=== PATIENT | female | born 1970 | race Caucasian/White ===

== ENCOUNTER → 2019-07-28 | Outpatient (CLI) | payer BC ==
[~2019-07-28] MED LIST: CETI10CH PO; GABA-282 PO; MOBI4TAB PO; PANT40TA29 PO; PRIM50TA6 PO
[2019-07-28 18:11] LABS: BASO # 0.1 10^3/uL (0.0-0.2); BASO % 0.9 % (0.0-1.0); EOS # 0.4 10^3/uL (0.0-0.5); EOS % 3.4 % (0.0-3.0); HEMOGLOBIN 15.4 g/dl (12.0-15.5); LYMPH # 3.8 10^3/uL (1.5-5.0); LYMPH % 30.1 % (24.0-44.0); MEAN CORPUSCULAR HEMOGLOBIN 30.3 pg (27.0-33.0); MEAN CORPUSCULAR HGB CONC 33.5 g/dl (32.0-36.5); MEAN CORPUSCULAR VOLUME 90.4 fl (80.0-96.0); MONO # 0.8 10^3/uL (0.0-0.8); MONO % 6.4 % (0.0-5.0); NEUTROPHILS # 7.4 10^3/uL (1.5-8.5); NEUTROPHILS % 58.6 % (36.0-66.0); PLATELET COUNT, AUTOMATED 353 10^3/uL (150-450); RED BLOOD COUNT 5.09 10^6/uL (4.00-5.40); WHITE BLOOD COUNT 12.7 10^3/uL (4.0-10.0)
[2019-07-28 18:29] LABS: HEMOGLOBIN A1c 7.1 %
[2019-07-28 18:38] LABS: ALBUMIN 4.1 GM/DL (3.2-5.2); ALT/SGPT 33 U/L (12-78); BILIRUBIN,TOTAL 0.3 MG/DL (0.2-1.0); BLOOD UREA NITROGEN 14 MG/DL (7-18); CALCIUM LEVEL 9.4 MG/DL (8.5-10.1); CARBON DIOXIDE LEVEL 30 MEQ/L (21-32); CHLORIDE LEVEL 105 MEQ/L (98-107); CREATININE FOR GFR 0.84 MG/DL (0.55-1.30); FOLATE 7.3 NG/ML; GLOMERULAR FILTRATION RATE > 60.0 (>58); GLUCOSE, FASTING 75 MG/DL (70-100); POTASSIUM SERUM 4.5 MEQ/L (3.5-5.1); RHEUMATOID FACTOR QUANT < 10.0 IU/ML (<15.0); SODIUM LEVEL 139 MEQ/L (136-145); TOTAL PROTEIN 7.4 GM/DL (6.4-8.2); VITAMIN B12 LEVEL 293 PG/ML
[2019-07-28 19:51] LABS: ERYTHROCYTE SEDIMENTATION RATE 7 mm/hr (0-20)
[2019-07-30 11:29] LABS: ALBUMIN % 61.3 % (55.8-66.1); ALPHA-1-GLOBULIN % 4.6 % (2.9-4.9); ALPHA-2-GLOBULINS % 10.5 % (7.1-11.8)
[2019-07-30 11:30] LABS: ALBUMIN 4.54 GM/DL (3.29-5.55); ALPHA-1-GLOBULINS 0.34 GM/DL (0.17-0.41); ALPHA-2-GLOBULINS 0.78 GM/DL (0.42-0.99); BETA-1-GLOBULINS 0.45 GM/DL (0.28-0.60); BETA-1-GLOBULINS % 6.1 % (4.7-7.2); BETA-2-GLOBULINS 0.39 GM/DL (0.19-0.55); BETA-2-GLOBULINS % 5.3 % (3.2-6.5); GAMMA GLOBULIN % 12.2 % (11.1-18.8)
[2019-08-07 10:07] LABS: ANCA-ATYPICAL <1:20 titer (Neg:<1:20); ANTI DS-DNA AB Negative (Negative); ANTINUCLEAR ANTIBODIES DIRECT Negative (Negative); CYTOPLASMIC NEUTROP AB ANCA-C <1:20 titer (Neg:<1:20); PERINUCLEAR AB ANCA-P <1:20 titer (Neg:<1:20); VITAMIN B1 LEVEL WHOLE BLOOD 157.5 nmol/L (66.5-200.0); VITAMIN B6,PYRIDOXAL PHOSPHATE 9.2 ug/L (2.0-32.8)
== END ==
LOC: M LAB 17:05
PROVIDERS: ATTEND Psychiatry & Neurology Neurology
DX: G62.9 Polyneuropathy, unspecified (principal)

== ENCOUNTER → 2019-10-13 | Outpatient (CLI) | payer BC ==
[~2019-10-13] MED LIST changes: -GABA-282 PO; +GABA-843 PO
--- NOTE | 2019-12-07 06:57 | REP ---
RIGHT UPPER QUADRANT ULTRASOUND: HISTORY: Nausea and diarrhea, heartburn, right upper quadrant pain. FINDINGS: Scanning through the right upper quadrant of the abdomen demonstrates a normal size thin-walled gallbladder. There is an immobile, nonshadowing, nondependent focus in the wall of the gallbladder near the neck consistent with a polyp 6 mm in diameter. No stone is seen. The common bile duct is normal, measuring 0.4 cm in greatest diameter. Mild increased echogenicity is seen in the liver consistent with some degree of fatty infiltration. No focal liver lesion is seen. Limited views of the pancreas show no abnormality. There is no evidence of ascites or right renal abnormality. The right kidney measures 10.6 x 4.5 x 3.5 cm. IMPRESSION: Small polyp in the gallbladder wall near its neck, 6 mm in diameter. Mild fatty infiltration of the liver. Otherwise negative. MTDD
== END ==
LOC: M RAD 07:36
PROVIDERS: ATTEND Nurse Practitioner
DX: K82.4 Cholesterolosis of gallbladder (principal); R10.11 Right upper quadrant pain; R11.0 Nausea; R19.7 Diarrhea, unspecified

== ENCOUNTER → 2019-10-13 | Outpatient (CLI) | payer BC ==
[2019-11-09 21:26] LABS: COLLAGEN EPINEPHRINE 103 SECONDS (74-162)
[2019-11-09 21:28] LABS: INR 0.93; PARTIAL THROMBOPLASTIN TIME 29.1 SECONDS (25.0-38.4); PROTHROMBIN TIME 12.7 SECONDS (11.8-14.0)
[2019-11-27 07:04] LABS: HCG, SERUM QUALITATIVE NEGATIVE (NEGATIVE)
== END ==
LOC: M LAB 07:36
PROVIDERS: ATTEND Physical Medicine & Rehabilitation
DX: M54.5 Low back pain (principal)

== ENCOUNTER → 2019-11-25 | Outpatient (CLI) | payer BC | LOC: M LABSMTC 11:21 | PROVIDERS: ATTEND Physical Medicine & Rehabilitation | DX: Z11.59 Encounter for screening for other viral diseases (principal) ==

== ENCOUNTER → 2019-12-20 | Outpatient (REF) | payer BC | LOC: M LAB REF 13:11 | PROVIDERS: ATTEND Surgery | DX: K82.8 Other specified diseases of gallbladder (principal) ==

== ENCOUNTER → 2019-12-23 | Outpatient (CLI) | payer BC ==
--- NOTE | 2019-12-24 19:31 | ECGEPIP ---
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
== END ==
LOC: M EKG 07:45
PROVIDERS: ATTEND Surgery
DX: Z01.818 Encounter for other preprocedural examination (principal)

== ENCOUNTER → 2019-12-25 | Outpatient (CLI) | payer BC | LOC: M LABSMTC 10:12 | PROVIDERS: ATTEND Anesthesiology | DX: Z01.812 Encounter for preprocedural laboratory examination (principal); Z20.828 Contact with and (suspected) exposure to other viral communicable diseases | CPT/HCPCS: C9803; U0003 ==

== ENCOUNTER 2019-12-30 08:39 | Day surgery (SDC) | payer BC ==
[~2019-12-30] VITALS: Ht 157.5 cm; Wt 80.3 kg
[~2019-12-30 08:39] MED LIST changes: +ACETAMINOPHEN 1000MG 100ML IV BTL (OFIRMEV) (J0131 PER 10MG) As Ordered ONE; +AMPICILLIN SOD/SULBACTAM SOD 3 GM in D5W MINI-BAG PLUS 100 ML IV ONE; +KETOROLAC 60MG 2ML VIAL As Ordered ONE; +LIDOCAINE 2% 100MG/5ML SDV (FOR ANES.) As Ordered ONE; +LR 1,000 ML IV ONE; +MIDAZOLAM INJ 2MG/2ML VIAL (J2250 PER 1MG) As Ordered ONE; +ONDANSETRON 4MG/2ML VIAL As Ordered ONE; +ROCURONIUM BROMIDE 50 MG/5 ML VIAL As Ordered ONE; +SUGAMMADEX SODIUM 500 MG/5 ML VIAL (BRIDION) As Ordered ONE; +dexameTHASONE 4 MG/ML 1ML VIAL (J1100 PER 1MG) As Ordered ONE; +fentaNYL 100 MCG/2 ML INJECTION (J3010) As Ordered ONE; +propofoL 200 MG/20 ML VIAL As Ordered ONE
[2019-12-30] MEDS ORDERED: LIDOCAINE 1% SDV 30ML VIAL As Ordered ONE (10:36)
[2019-12-30] MEDS ORDERED: BUPIVACAINE HCL 0.25% 30ML VIAL As Ordered ONE (10:36)
[2019-12-30] MEDS ORDERED: ESMOLOL INJ 100MG/10ML VIAL As Ordered ONE (11:22)
[2019-12-30] MEDS ORDERED: fentaNYL 100 MCG/2 ML INJECTION (J3010) As Ordered ONE ×2 (11:31→12:57)
[2019-12-30] MEDS ORDERED: ONDANSETRON 4MG/2ML VIAL IV PRN ×2 (12:45)
[2019-12-30] MEDS ORDERED: MEPERIDINE INJ 25 MG/ML VIAL (J2175) IV PRN (12:45)
[2019-12-30] MEDS ORDERED: LR 1,000 ML IV SCH (12:45)
[2019-12-30] MEDS ORDERED: KETOROLAC 30 MG/ML 1ML VIAL IV PRN (12:45)
[2019-12-30] MEDS ORDERED: oxyCODONE 5MG TAB PO PRN (12:45)
[2019-12-30] MEDS ORDERED: PERCOCET 5MG/325MG TAB PO PRN (12:45)
[2019-12-30] MEDS ORDERED: METOCLOPRAMIDE INJ 10MG/2ML VIAL (J2765 PER 1) IV PRN (12:45)
[2019-12-30] MEDS: fentaNYL 100 MCG/2 ML INJECTION (J3010) IV PRN ×4 (13:00→13:20)
--- NOTE | 2019-12-30 13:06 | ROOPDOC ---
[facility] Report Of Operation Report of Operation DATE OF PROCEDURE: 12/30/19 PREPROCEDURE DIAGNOSES: Gallbladder polyp, biliary colic. POSTPROCEDURE DIAGNOSES: same. PROCEDURE: Robotic assisted Laparoscopic Cholecystectomy with ICG use for biliary anatomy identificationr. SURGEON: Gayathri Mena MD PEDIATRIC PHYSICIAN: Milena Francois NP ANESTHESIA: General Anesthesia. ESTIMATED BLOOD LOSS: Approximately 10 mL. COMPLICATIONS: none REMARKS: 49-year-old female complaining of nausea, right upper quadrant discomfort and found to have either Kolesar gallbladder polyp at the neck of the gallbladder which possibly could be causing her symptoms. She is brought in today for planned cholecystectomy.. PROCEDURE NOTE: Mildly distended relatively thin-walled gallbladder without any noticeable masses or large stones. Patient was given a dose Unasyn 3 g IV preoperatively for prophylaxis, 5 mg of ICG was given intravenouslyy in the preoperative area. She was brought to the operating room, laid supine on the table, compression boots placed for DVT prophylaxis. General endotracheal anesthesia started. His abdomen then prepped and draped in usual sterile fashion. Surgical timeout was performed prior to confirm right procedure, right patient identification and other necessary information prior to starting surgery. Entry into the abdomen done through an incision aslightly to the left of the umbilical cleft. A Veress needle was inserted with a controlled fashion. CO2 insufflation started to pressure 15 mmHg. Using the same incision an 8 mm robotic trochar was placed under direct vision laparoscope. The area underneath the insertion site was inspected and no injury found. He was then placed in steep reverse Trendelenburg. His right side was tilted up to further expose the gallbladder. Under direct vision 3 more 8 mm trochars were placed along a row at level to the camera port site at the anterior axillary line, right midclavicular line and left mid clavicular line. A transversus abdominis plane block was then performed bilaterally using the lidocaine/marcaine mixture under laparoscopic guidance. The da Annie robot tower was then maneuvered in place and the trochards docked to the robot. I used a prograsp, forced bipolar, and hook cautery for the procedure with a 30 degree robotic camera. I unscrubbed and assumed control of the camera and instruments at the surgeon's console. Operative findings: Her liver is noted to be smooth in contour, mildly enlarged. The size of the liver is midly enlarged. Her gallbladder is mildly distended, relatively thin- walled without any acute inflammation The fundus of the gallbladder was grasped and the gallbladder is elevated superiorly exposing the neck of the gallbladder. The peritoneum overlying the area is opened up and dissected free both anteriorly and posteriorly to help with retraction of the gallbladder. The hepatocystic triangle was approached and dissected using hook cautery and firely visualization of the cystic duct. There was good illumination of the course of the cystic duct. The wall of the gallbladder appears midly thickened. The cystic duct was identified coming off from the neck of the gallbladder. This was circumferentially dissected. The cystic artery was identified in its usual position medially behind a mildly enlarged lymph node of Calot. This was similarly circumferentially dissected off surrounding adipose tissue. We continued posterior dissection proximally at the neck of gallbladder to dissect the posterior wall of the gallbladder off the liver plate until a critical view of safety was achieved whereby only the previously identified duct and artery coursing through the neck the gallbladder(photodocumentation done.) At this point the the cystic artery was most accessible and this was clipped 2 times and divided in between the hemlock clips. After again checking her anatomy and verifying with firely the course of thecystic duct and common bile duct, this was also clipped and divided with 2 clips remaining at the cystic duct stump. The rest of the gallbladder was then dissected free of the gallbladder bed using Bovie cautery. The gallbladder was then placed in an Endo Catch bag and retrieved outside through the right axillary port site with partial enlargement of the port site by my programs assistant to accomodate the gallbladder. The clips and liver bed was inspected for bleeding and bile leakage and none found. I closed the extraction site with a 2-0 vloc stitch. The abdomen was deflated, The trochars undocked, the robot removed from the field. Rest of the skin incisions closed with 4-0 Monocryl in subcuticular fashion. Dermabond placed to cover the incisions.. Patient was awakened, extubated and brought to recovery room stable. GAYATHRI MENA MD Dec 30, 2019 13:06
[2019-12-30 16:10] VITALS: BP 120/87
== END 2019-12-30 16:27 | disposition home or self-care (01) ==
LOC: M SDC 08:39
PROVIDERS: ATTEND Surgery
DX: K81.0 Acute cholecystitis (principal); K21.9 Gastro-esophageal reflux disease without esophagitis; F17.218 Nicotine dependence, cigarettes, with other nicotine-induced disorders; F32.9 Major depressive disorder, single episode, unspecified; F41.9 Anxiety disorder, unspecified; Z79.899 Other long term (current) drug therapy
CPT/HCPCS: 47562; 88304; J0131; J1100; J1885; J2250; J2405; J3010; S2900

== ENCOUNTER → 2020-05-03 | Outpatient (CLI) | payer BC ==
[~2020-05-03] MED LIST changes: -ACETAMINOPHEN 1000MG 100ML IV BTL (OFIRMEV) (J0131 PER 10MG) As Ordered ONE; -AMPICILLIN SOD/SULBACTAM SOD 3 GM in D5W MINI-BAG PLUS 100 ML IV ONE; +ESCI5SOL3 PO; +GABA-282 PO; -GABA-843 PO; -KETOROLAC 60MG 2ML VIAL As Ordered ONE; -LIDOCAINE 2% 100MG/5ML SDV (FOR ANES.) As Ordered ONE; -LR 1,000 ML IV ONE; -MIDAZOLAM INJ 2MG/2ML VIAL (J2250 PER 1MG) As Ordered ONE; -ONDANSETRON 4MG/2ML VIAL As Ordered ONE; -ROCURONIUM BROMIDE 50 MG/5 ML VIAL As Ordered ONE; -SUGAMMADEX SODIUM 500 MG/5 ML VIAL (BRIDION) As Ordered ONE; -dexameTHASONE 4 MG/ML 1ML VIAL (J1100 PER 1MG) As Ordered ONE; -fentaNYL 100 MCG/2 ML INJECTION (J3010) As Ordered ONE; -propofoL 200 MG/20 ML VIAL As Ordered ONE
== END ==
LOC: M LABSMTC 12:58
PROVIDERS: ATTEND Pediatrics
DX: Z20.822 Contact with and (suspected) exposure to COVID-19 (principal)
CPT/HCPCS: C9803; U0003

== ENCOUNTER → 2020-06-06 | Outpatient (CLI) | payer BC | LOC: M LABSMTC 12:01 | PROVIDERS: ATTEND Anesthesiology | DX: Z01.812 Encounter for preprocedural laboratory examination (principal); Z20.822 Contact with and (suspected) exposure to COVID-19 ==

== ENCOUNTER 2020-06-08 09:39 | Day surgery (SDC) | payer BC ==
[~2020-06-08] VITALS: Ht 157.5 cm; Wt 78.0 kg
[~2020-06-08 09:39] MED LIST changes: +LIDOCAINE 2% 100MG/5ML SDV (FOR ANES.) As Ordered ONE; +NS 1,000 ML IV ONE; +propofoL 200 MG/20 ML VIAL As Ordered ONE
--- NOTE | 2020-06-08 10:46 | ROOR ---
Patient Name: Angeline Blake Procedure Date: 06/08/2020 10:09 AM Date of : 1970 Age: 50 Room: [facility] Gender: Female Note Status: Finalized Procedure: Colonoscopy Indications: Chronic diarrhea Providers: Ashish Mena MD Referring MD: Rosa Orozco NP Requesting Provider: Medicines: Monitored Anesthesia Care Complications: No immediate complications. Procedure: Pre-Anesthesia Assessment: - Prior to the procedure, a History and Physical was performed, and patient medications and allergies were reviewed. The patient is competent. The risks and benefits of the procedure and the sedation options and risks were discussed with the patient. All questions were answered and informed consent was obtained. Patient identification and proposed procedure were verified by the physician, the nurse and the anesthesiologist in the endoscopy suite. Mental Status Examination: alert and oriented. Airway Examination: normal oropharyngeal airway and neck mobility. Respiratory Examination: clear to auscultation. CV Examination: normal. Prophylactic Antibiotics: The patient does not require prophylactic antibiotics. Prior Anticoagulants: The patient has taken no previous anticoagulant or antiplatelet agents. ASA Grade Assessment: II - A patient with mild systemic disease. After reviewing the risks and benefits, the patient was deemed in satisfactory condition to undergo the procedure. The anesthesia plan was to use monitored anesthesia care (MAC). Immediately prior to administration of medications, the patient was re-assessed for adequacy to receive sedatives. The heart rate, respiratory rate, oxygen saturations, blood pressure, adequacy of pulmonary ventilation, and response to care were monitored throughout the procedure. The physical status of the patient was re-assessed after the procedure. The Colonoscope was introduced through the anus and advanced to the terminal ileum, with identification of the appendiceal orifice and IC valve. The colonoscopy was performed without difficulty. The patient tolerated the procedure well. The quality of the bowel preparation was good. Findings: Hemorrhoids were found on perianal exam. A 4 mm polyp was found in the sigmoid colon. The polyp was sessile. The polyp was removed with a cold snare. Resection and retrieval were complete. Estimated blood loss was minimal. Four sessile polyps were found in the rectum. The polyps were diminutive in size. These polyps were removed with a cold snare. Resection and retrieval were complete. Estimated blood loss was minimal. There is no endoscopic evidence of bleeding, erythema or inflammation in the entire colon. Biopsies for histology were taken with a cold forceps from the entire colon for evaluation of microscopic colitis. A few small-mouthed diverticula were found in the sigmoid colon. The retroflexed view of the distal rectum and anal verge was normal and showed no anal or rectal abnormalities. Impression: - Hemorrhoids found on perianal exam. - One 4 mm polyp in the sigmoid colon, removed with a cold snare. Resected and retrieved. - Four diminutive polyps in the rectum, removed with a cold snare. Resected and retrieved. - Diverticulosis in the sigmoid colon. - The distal rectum and anal verge are normal on retroflexion view. - Biopsies were taken with a cold forceps from the entire colon for evaluation of microscopic colitis. Recommendation: - Discharge patient to home (ambulatory). - High fiber diet indefinitely. - Await pathology results. - Telephone my office for pathology results in 1 week. Procedure Code(s): --- Professional --- 38196, Colonoscopy, flexible; with removal of tumor(s), polyp(s), or other lesion(s) by snare technique 16744, 59, Colonoscopy, flexible; with biopsy, single or multiple Diagnosis Code(s): --- Professional --- K64.9, Unspecified hemorrhoids K63.5, Polyp of colon K62.1, Rectal polyp K52.9, Noninfective gastroenteritis and colitis, unspecified K57.30, Diverticulosis of large intestine without perforation or abscess without bleeding CPT copyright 2019 [employer]. All rights reserved. The codes documented in this report are preliminary and upon svp review may be revised to meet current compliance requirements. Ashish Mena MD Ashish Mena MD 06/08/2020 10:46:32 AM Electronically signed by Ashish Mena MD Number of Addenda: 0 Note Initiated On: 06/08/2020 10:09 AM Estimated Blood Loss: Estimated blood loss: none. Estimated blood loss was minimal.
[2020-06-08 11:06] VITALS: BP 103/58
== END 2020-06-08 11:08 | disposition home or self-care (01) ==
LOC: M OPP 09:39
PROVIDERS: ATTEND Surgery
DX: K63.5 Polyp of colon (principal); K62.1 Rectal polyp; K64.8 Other hemorrhoids; K57.30 Diverticulosis of large intestine without perforation or abscess without bleeding; K52.9 Noninfective gastroenteritis and colitis, unspecified; F17.210 Nicotine dependence, cigarettes, uncomplicated; Z79.899 Other long term (current) drug therapy; Z88.0 Allergy status to penicillin

== ENCOUNTER → 2020-07-08 | Outpatient (CLI) | payer BC ==
[~2020-07-08] MED LIST changes: -LIDOCAINE 2% 100MG/5ML SDV (FOR ANES.) As Ordered ONE; -NS 1,000 ML IV ONE; -propofoL 200 MG/20 ML VIAL As Ordered ONE
--- NOTE | 2020-07-08 17:37 | REP ---
INDICATION: R SHOULDER PAIN COMPARISON: None. TECHNIQUE: Internal rotation, external rotation, and Y view. FINDINGS: No acute fracture or dislocation. Acromioclavicular and glenohumeral joints are essentially age-appropriate. Subacromial space is normal. IMPRESSION: Age-appropriate right shoulder radiographs. If the patient remains symptomatic consider MRI for further investigation. <Electronically signed by Bertrand Soria > 07/08/20 [id number]
== END ==
LOC: M RAD 17:20
PROVIDERS: ATTEND Physician Assistant Medical
DX: M25.511 Pain in right shoulder (principal)

== ENCOUNTER 2020-08-07 16:21 | Emergency (ER) | payer BC ==
[~2020-08-07] VITALS: Ht 157.5 cm; Wt 79.2 kg
[2020-08-07] MEDS ORDERED: ALLE180T33 PO (16:29)
[2020-08-07 17:42] LABS: BASO # 0.1 10^3/uL (0.0-0.2); BASO % 0.8 % (0.0-1.0); EOS # 0.5 10^3/uL (0.0-0.5); EOS % 3.6 % (0.0-3.0); HEMATOCRIT 42.7 % (36.0-47.0); LYMPH # 3.1 10^3/uL (1.5-5.0); LYMPH % 23.4 % (24.0-44.0); MEAN CORPUSCULAR HEMOGLOBIN 30.2 pg (27.0-33.0); MEAN CORPUSCULAR HGB CONC 32.8 g/dl (32.0-36.5); MONO % 7.3 % (2.0-8.0); NEUTROPHILS # 8.6 10^3/uL (1.5-8.5); NEUTROPHILS % 64.4 % (36.0-66.0); PLATELET COUNT, AUTOMATED 296 10^3/uL (150-450); RED BLOOD COUNT 4.64 10^6/uL (4.00-5.40); WHITE BLOOD COUNT 13.3 10^3/uL (4.0-10.0)
[2020-08-07 18:05] LABS: ERYTHROCYTE SEDIMENTATION RATE 23 mm/hr (0-20)
[2020-08-07] MEDS ORDERED: dexameTHASONE 20MG/5ML VIAL (J1100 PER 1MG) IV ONE (18:25)
[2020-08-07] MEDS ORDERED: AMPICILLIN SOD/SULBACTAM SOD 3 GM in D5W MINI-BAG PLUS 100 ML IV ONE (18:25)
[2020-08-07] MEDS ORDERED: ISOVUE-370 76% 100ML VIAL As Ordered ONE (18:29)
--- NOTE | 2020-08-07 20:33 | REPVR ---
PROCEDURE INFORMATION: Exam: CT Maxillofacial With Contrast Exam date and time: 08/07/2020 6:49 PM Age: 50 years old Clinical indication: Mass, lump, or swelling; Maxilla; Additional info: Broken R tooth #1/2, maxillary and mandib swelling TECHNIQUE: Imaging protocol: Computed tomography images of the face with intravenous contrast. Radiation optimization: All CT scans at this facility use at least one of these dose optimization techniques: automated exposure control; mA and/or kV adjustment per patient size (includes targeted exams where dose is matched to clinical indication); or iterative reconstruction. Contrast material: ISOVUE 370; Contrast volume: 75 ml; Contrast route: INTRAVENOUS (IV); COMPARISON: No relevant prior studies available. FINDINGS: Orbital cavity: There is a chronic blowout fracture involving the medial aspect of the left orbital floor. No entrapment of the left inferior rectus muscle is noted. The globes are intact and normal in appearance. There is no intraorbital fluid collection or gas. Bones/joints: There is no fracture or dislocation of the facial bones. The temporomandibular joints are unremarkable. Paranasal sinuses: There is mild mucosal thickening in the base of the right maxillary sinus. No air-fluid levels are noted in the sinuses. There is a 10 mm osteoma in the right frontal ethmoidal recess. Mastoid air cells: Clear. Auditory system: The middle ear spaces are clear. Soft tissues: There is mild edema in the subcutaneous tissues along the right side of the mandible. No soft tissue fluid collection or soft tissue gas is noted. Submandibular/Parotid glands: Unremarkable. Nasal cavity: Unremarkable. Dental: There are dental caries involving the right upper 1st and 2nd molars and dental caries and a periapical abscess involving the left upper 1st premolar where a root canal has been performed. Several teeth are missing. Nasopharynx: Unremarkable. Oral Cavity: There are outgrowths of densely mineralized bone from the inner surface of the mandible, which are compatible with mandibular mario. Oropharynx: Unremarkable. No enlargement of the palatine tonsils. No tonsillar or peritonsillar abscess. IMPRESSION: 1. Dental caries involving the right upper 1st and 2nd molars and dental caries and a periapical abscess involving the left upper 1st premolar where a root canal has been performed. 2. Mild edema in the subcutaneous tissues along the right side of the mandible, which may represent cellulitis, lymphedema, or bruising. 3. Chronic blowout fracture involving the medial aspect of the left orbital floor. Electronically signed by: Stephon Koehler On 08/07/2020 20:33:09 PM
[2020-08-07] MEDS ORDERED: DECA4TAB PO (20:45)
[2020-08-07] MEDS ORDERED: AUGM875T28 PO (20:45)
[2020-08-07 21:25] VITALS: BP 120/68
== END 2020-08-07 21:26 | disposition home or self-care (01) ==
LOC: M ED 16:21
DX: S02.32XA Fracture of orbital floor, left side, initial encounter for closed fracture (principal); X58.XXXA Exposure to other specified factors, initial encounter; Y92.9 Unspecified place or not applicable; Y93.9 Activity, unspecified; Y99.9 Unspecified external cause status; K04.7 Periapical abscess without sinus; K02.9 Dental caries, unspecified; F17.200 Nicotine dependence, unspecified, uncomplicated; Z79.899 Other long term (current) drug therapy
CPT/HCPCS: 70487; 80047; 84702; 85025; 85652; 86140; 96361; 96365; 96374; 96375; 99283; J1100; Q9967

== ENCOUNTER → 2020-09-29 | Outpatient (CLI) | payer BC ==
[~2020-09-29] MED LIST changes: +ALLE180T33 PO; +AUGM875T28 PO; +DECA4TAB PO
--- NOTE | 2020-09-30 00:44 | REP ---
INDICATION: SHORTNESS OF BREATH COMPARISON: None. TECHNIQUE: PA and lateral. FINDINGS: The mediastinum and cardiac silhouette are normal. The lung to are clear and without acute consolidation, effusion, or pneumothorax. The skeletal structures are intact and normal. IMPRESSION: No acute cardiopulmonary process. <Electronically signed by Bertrand Soria > 09/30/20 0040
== END ==
LOC: M RAD 17:01
PROVIDERS: ATTEND Physician Assistant
DX: R06.02 Shortness of breath (principal)

== ENCOUNTER → 2020-10-31 | Outpatient (CLI) | payer BC ==
--- NOTE | 2020-10-31 10:55 | REPVR ---
PROCEDURE INFORMATION: Exam: CT Maxillofacial Without Contrast, Sinus Exam date and time: 10/31/2020 10:41 AM Age: 50 years old Clinical indication: Sinusitis; Chronic; Additional info: Pansinusitis TECHNIQUE: Imaging protocol: CT Maxillofacial without contrast. Focus on the sinuses. Radiation optimization: All CT scans at this facility use at least one of these dose optimization techniques: automated exposure control; mA and/or kV adjustment per patient size (includes targeted exams where dose is matched to clinical indication); or iterative reconstruction. COMPARISON: CT Maxillofacial with contrast 08/07/2020 6:48 PM FINDINGS: Frontal sinuses: Normal. No air-fluid levels. Ethmoid air cells: Small osteoma in the right ethmoidal air cells. Mild mucosal thickening of the ethmoidal air cells. Sphenoid sinuses: Normal. No air-fluid levels. Maxillary sinuses: Normal. No air-fluid levels. Ostiomeatal units are patent. Nasal cavity/Septum: Unremarkable. Orbital cavity: Orbits are normal. Globes are unremarkable. Bones/joints: Unremarkable. Soft tissues: Unremarkable. IMPRESSION: Small osteoma in the right ethmoidal air cells. Mild mucosal thickening of the ethmoidal air cells. No air-fluid level. All other sinuses are unremarkable. Electronically signed by: Caroline Wood On 10/31/2020 10:55:32 AM
== END ==
LOC: M RAD 10:11
PROVIDERS: ATTEND Otolaryngology
DX: J32.4 Chronic pansinusitis (principal)

== ENCOUNTER → 2021-01-04 | Outpatient (CLI) | payer BC ==
--- NOTE | 2021-01-05 05:22 | REP ---
INDICATION: DORSALGIA, UNSPECIFIED COMPARISON: None. TECHNIQUE: AP, lateral, bilateral oblique, and coned-down views of the lumbar spine. FINDINGS: Alignment and lordosis maintained. Vertebral bodies are intact. No acute fracture/compression injury or subluxation. Focal endplate sclerosis with disc space narrowing and facet hypertrophy noted at L5-S1, and chronic spondylolysis without spondylolisthesis cannot be exclude. IMPRESSION: Focal degenerative changes at L5-S1. <Electronically signed by Bertrand Soria > 01/05/21 0518
== END ==
LOC: M RAD 16:43
PROVIDERS: ATTEND Internal Medicine
DX: M54.9 Dorsalgia, unspecified (principal)

== ENCOUNTER → 2021-01-19 | Outpatient (CLI) | payer BC | LOC: M WHC 07:06 | PROVIDERS: ATTEND Internal Medicine | DX: Z12.31 Encounter for screening mammogram for malignant neoplasm of breast (principal) ==

== ENCOUNTER → 2021-05-15 | Outpatient (CLI) | payer BC | LOC: M PAIN 13:00 | PROVIDERS: ATTEND Nurse Practitioner Family | DX: G89.29 Other chronic pain (principal); M51.16 Intervertebral disc disorders with radiculopathy, lumbar region; E11.9 Type 2 diabetes mellitus without complications; M79.7 Fibromyalgia; K21.9 Gastro-esophageal reflux disease without esophagitis; R25.1 Tremor, unspecified; F17.210 Nicotine dependence, cigarettes, uncomplicated; J30.1 Allergic rhinitis due to pollen; Z79.1 Long term (current) use of non-steroidal anti-inflammatories (NSAID); Z79.899 Other long term (current) drug therapy ==

== ENCOUNTER → 2021-05-31 | Outpatient (CLI) | payer BC | LOC: M RAD 11:29 | PROVIDERS: ATTEND Nurse Practitioner Family | DX: M54.6 Pain in thoracic spine (principal) ==

== ENCOUNTER → 2021-09-12 | Outpatient (REF) | payer BC | LOC: M LAB REF 15:50 | PROVIDERS: ATTEND Surgery | DX: D17.1 Benign lipomatous neoplasm of skin and subcutaneous tissue of trunk (principal) ==